=== PATIENT | male | born 1970 | race Caucasian/White ===

== ENCOUNTER 2024-08-29 10:58 | Outpatient (AMB) | payer OTHER, SELFPAY ==
--- NOTE | 2024-08-29 11:10 | A.OFFPC_ITS ---
Vital Signs 08/29/24 11:19 Height 5 ft 7 in Weight 162 lb BMI 25.4 BP 108/74 Blood Pressure Location Lt brachial Position Sitting Respiration 16 Pulse 79 Pulse Source Pulse Oximeter Temp 98.0 F Temp Source Oral Pulse Oximetry (%) 98 Oxygen Delivery Method Room Air Intake Visit Reasons: EstablishCareNP Intake Note: patient here for new patient visit. 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 Allergies No Known Allergies Allergy (Verified 08/29/24 11:33) Medication List - Last Reconciled 08/29/24 by Vineet Rapp CNP No Known Home Meds Tobacco use date assessed: 08/29/24 Dental Screening Dental Screen Date: 08/29/24 Did you have a dental visit in the last 12 months?: Yes Did you have a dental problem in the last 6 months where you did not have access to dental care?: No Was dental information given to patient?: Patient has dentist HPI HPI Comments History of Present Illness Details New patient Prior PCP: [facility], [place], [place] Last office visit/CPE: About 3 months. Last extended physical for over a year ago. He has not had blood work in a while Acute issue(s): None Not on prescription medication He generally eats and sleep well. He exercise routinely PMHx: Abdominal hernia SurgHx: Nasal surgery FHx: PGF: Alcohol abuse SocHx: Nonsmoker. Drinks 1-2 bottles of rum on weekends. No recreational drugs Last eye exam was 5 years ago Last colonoscopy was with [facility] in 2019: Normal. Will sign a release for his PCP to obtain records He is up-to-date on the shingle vaccines Last tetanus vaccine is less that 5 years ago He was vaccinated for the flu yesterday, at his workplace [facility] Medical History (Updated 08/29/24 @ 11:49 by Vineet Rapp CNP) Hernia Surgical History (Updated 08/29/24 @ 11:23 by Amanda Eastman MA) History of nasal surgery Family History (Updated 08/29/24 @ 11:29 by Amanda Eastman MA) Paternal Grandfather Alcohol abuse Paternal Grandmother No problems noted. 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 1. Little interest or pleasure in doing things: not at all 2. Feeling down, depressed, or hopeless: not at all 3. Trouble falling or staying asleep, or sleeping too much: not at all 4. Feeling tired or having little energy: not at all 5. Poor appetite or overeating: not at all 6. Feeling bad about yourself - or that you are a failure or have let yourself or your family down: not at all 7. Trouble concentrating on things, such as reading the newspaper or watching television: not at all 8. Moving or speaking so slowly that other people could have noticed. Or the opposite - being so fidgety or restless that you have been moving around a lot more than usual: not at all 9. Thoughts that you would be better off or of hurting yourself in some way: not at all Total score: 0 Depression Screening Interpretation: Negative Depression Screening Done: Yes 37231 - PHQ-9 Billing: Yes Source: Developed by Drs. Uvaldo Mccauley, Adriana Jauregui, Yusef Rodrigez and colleagues, with an educational demetrice from [employer]. Thrive Questionnaire Date Thrive assessed: 08/29/24 I am a: Patient What is your living situation today?: I have a steady place to live Within the past 12 months, did the food you bought not last and you didn't have the money to get more?: Never true Within the past 12 months, did you worry whether your food would run out before you got money to buy more?: Never true Do you have trouble paying for medicines?: No Do you have trouble getting transportation to medical appointments?: No Do you have trouble paying your heating and electricity bill?: No Do you have trouble taking care of your child, family member or friend?: No Do you have trouble with day-to-day activities such as bathing, preparing meals, shopping, managing finances, etc.?: No Are you currently unemployed and looking for a job?: No Are you interested in more education?: No Please select the resources that you would like help with: None Currently or been in a relationship where the following occur: No concerns reported THRIVE Score: 0 AUDIT C Alcohol Use Questionnaire (AUDIT-C) 1. How often do you have a drink containing alcohol?: 2-3 times a week 2. How many drinks containing alcohol do you have on a typical day when you are drinking?: 1 or 2 3. How often do you have six or more drinks on one occasion?: Never Total Score: 3 FABY-7 AMB Questionnaire FABY-7 Date FABY - 7 assessed: 08/29/24 Feeling nervous, anxious, or on edge: 0 = Not at all Not being able to stop or control worryin = Not at all Worrying too much about different things: 0 = Not at all Trouble relaxin = Not at all Being so restless that it is hard to sit still: 0 = Not at all Becoming easily annoyed or irritable: 0 = Not at all Feeling afraid as if something awful might happen: 0 = Not at all Total FABY-7 score (0-4 normal; 5-9 mild; 10-14 moderate; 15-21 severe): 0 Source: Developed by Drs. Uvaldo Mccauley, Adriana Jauregui, Yusef Rodrigez and colleagues, with an educational demetrice from [employer]. FABY-7 Assessment Billing FABY-7 Assessment Tool: FABY-7 Assessment 58213 Review of Systems Const Details: Denies chills, Denies fatigue, Denies fever(s), Denies headache(s) and Denies weakness HEENT Denies change in vision, Denies dizziness, Denies headache(s), Denies hearing loss, Denies nasal congestion, Denies sinus pain, Denies sinus pressure and Denies sore throat Card Denies chest pain, Denies lightheadedness, Denies dyspnea and Denies other (palpitations) Resp Denies cough, Denies dyspnea and Denies wheezing GI Denies abdominal pain, Denies melena, Denies hematochezia, Denies change in bowel habits, Denies dyspepsia and Denies nausea Denies hematuria and Denies dysuria Musc Denies abnormal gait, Denies myalgias, Denies arthralgias, Denies numbness and Denies tingling Skin/Breast Denies rash, Denies unusual bruising and Denies wounds Neuro Denies abnormal gait, Denies dizziness, Denies headache(s), Denies memory loss, Denies numbness, Denies Sensory deficit (Neuro), Denies tingling and Denies weakness Psych Denies anxiety, Denies depression and Denies memory loss Endo Denies cold intolerance, Denies fatigue, Denies heat intolerance, Denies polydipsia and Denies polyuria Lawrence/Lymph Denies easy bleeding and Denies easy bruising Aller/Immun Denies wheezing Physical exam (Primary Care) Vital Signs: Last Vital Signs Temp 98.0 F 08/29/24 11:19 Pulse 79 08/29/24 11:19 Resp 16 08/29/24 11:19 BP 108/74 08/29/24 11:19 Pulse Ox 98 08/29/24 11:19 Oxygen Delivery Method Room Air 08/29/24 11:19 BMI result Body Mass Index 25.4 Tobacco/Smoking Status: Tobacco use Status Tobacco use date assessed 08/29/24 08/29/24 11:16 Patient Tobacco Use Status Never used Tobacco 08/29/24 11:16 e-Cigarette/Vaping Use Never Used 08/29/24 11:16 PHQ-9: PHQ-9 Score PHQ-9: Total score 0 08/29/24 11:29 Depression Screening Interpretation: Negative Thrive Assessment: Date of Thrive Assessment Date Thrive assessed 08/29/24 08/29/24 11:29 Currently or been in a relationship where the following occur: No concerns reported Const Other: General: no acute distress, well developed, alert and awake Nutritional Appearance: well nourished Orientation/consciousness: patient oriented x3 HENMT Head: Yes normocephalic and Yes atraumatic Ears: hearing grossly normal bilaterally and TM's normal bilaterally General nose exam: Normal external nose present and Normal nares present Mouth: Normal oral and palatal mucosa present and moist mucous membranes Teeth and gingiva: dentition normal Throat: Yes oropharynx normal Eyes Pupils: Equal, round and reactive pupils present and Pupil accommodation reflex normal EOM: EOMs intact bilaterally Neck Neck: Yes normal visual inspection, Yes no lymphadenopathy and Yes trachea midline Thyroid: Thyroid normal Carotids: no bruits Lymphatic: no lymphadenopathy noted Chest Chest palpation & inspection: normal inspection of the chest Resp Effort & Inspection: normal respiratory effort Auscultation: clear to auscultation bilaterally Cardio Rate: regular rate Rhythm: regular rhythm Heart sounds: S1 normal heart sound present, S2 normal heart sound present, no gallops, no murmurs and no rubs Bruits: no abdominal aortic bruits and no carotid bruits GI Palpation (GI): No Abdominal aortic bruit present, Soft to palpation, nontender, No hepatosplenomegaly present and No Rebound tenderness present Auscultation: normal bowel sounds General: Yes no CVA tenderness Back/Spine/Pelvis Back: no CVA tenderness Cervical Spine: cervical ROM normal and No Cervical spine tenderness Thoracic/Lumbar Spine: thoraco-lumbar ROM normal, No pain with thoraco-lumbar ROM, No thoracic spinal tenderness and No lumbar spinal tenderness Skin General: warm and dry. Normal skin color. Normal skin turgor Lesions: no lesions Rashes: no rashes Trauma: no lacerations or abrasions Wounds: no wounds Nails: normal Neuro General: patient oriented x3, gait normal and CN's II-XI intact bilaterally Cranial nerves: Yes Equal, round and reactive pupils present Cognition (Neuro): normal cognition Gait exam (Neuro): Normal gait present Motor exam (neuro): 5/5 motor strength present throughout Sensory Exam: No Sensory deficit (Neuro) Deep tendon reflexes (DTR's): Right patellar reflex intensity grade: 2+ and Left patellar reflex intensity grade: 2+ Extrem General: Yes normal to inspection, No edema and No calf tenderness Psych Appearance: grossly normal Affect: normal affect Attitude: cooperative Thought process: Normal thought process present Coding Level of Care Code New Pt Prev Care 40-64y(01363) Diagnoses Normal physical examination, routine Z00.00 Eye exam, routine Z01.00 Laboratory tests ordered as part of a complete physical exam (CPE) Z00. Additional Codes FABY-7 Assessment Billing - FABY-7 Assessment Tool: FABY-7 Assessment 35845 ([id number]) Assessment & Plan Assessment & Plan (1) Normal physical examination, routine: Code(s): Z00.00 - Encounter for general adult medical examination without abnormal findings Category: Medical Plan: No significant physical restrictions or limitations noted Healthy diet and routine exercise encouraged Advised to get lab work done in follow-up for telehealth visit in 2-3 weeks for labs review Return with symptoms or concerns Verbalized understanding and agreed with the treatment plan (2) Eye exam, routine: Code(s): Z01.00 - Encounter for examination of eyes and vision without abnormal findings Category: Medical Plan: Last eye exam was 5 years ago Referral made for routine eye exam (3) Laboratory tests ordered as part of a complete physical exam (CPE): Code(s): Z00.00 - Encounter for general adult medical examination without abnormal findings Category: Medical Plan: Fasting labs ordered as part of a complete physical exam. Advised to fast for at least 10 hours before getting labs drawn. May drink water Verbalized understanding and agreed with treatment plan. Orders: Orders Complete Blood Count Auto Diff Today Z00.00 - Encounter for general adult medical examination without abnormal findings Comprehensive [place]. Panel Fast Today Z00.00 - Encounter for general adult medical examination without abnormal findings PSA, Ultra Sensitive Today Z00.00 - Encounter for general adult medical examination without abnormal findings Microalbumin, Random (w Creat) Today Z00.00 - Encounter for general adult medical examination without abnormal findings TSH reflex Free T4 Today Z00.00 - Encounter for general adult medical examination without abnormal findings UA CC w/rflx Micro + Cult Today Z00.00 - Encounter for general adult medical examination without abnormal findings Lipid Panel Today Z00.00 - Encounter for general adult medical examination without abnormal findings Referrals Ophthalmology Referral Z01.00 - Encounter for examination of eyes and vision without abnormal findings
[2024-08-29 11:19] VITALS: BP 108/74; PULSE 79; RESP 16; TEMP 36.7; O2SAT 98; BMI 25.4
== END 2024-08-29 11:52 | disposition home or self-care (01) ==
PROVIDERS: PCP Nurse Practitioner Family; Visit Provider Nurse Practitioner Family
DX: Z00.00 Encounter for general adult medical examination without abnormal findings (principal)

== ENCOUNTER → 2024-08-29 10:58 | Outpatient (BNVA) | payer OTHER, SELFPAY | PROVIDERS: PCP Nurse Practitioner Family; Visit Provider Nurse Practitioner Family | DX: Z00.00 Encounter for general adult medical examination without abnormal findings (principal) | CPT/HCPCS: 96127 ==

== ENCOUNTER 2024-09-12 13:05 | Outpatient (REF) | payer OTHER, SELFPAY ==
[2024-09-12 14:07] LABS: MANUAL DIFF FLAG NO
[2024-09-12 14:11] LABS: Basophils Absolute Auto 0.1 X10*3/uL (0.0-0.2); Basophils Percent Auto 1.4 % (0-2); Eosinophils Absolute Auto 0.1 X10*3/uL (0.0-0.4); Eosinophils Percent Auto 1.7 % (0-4); Hematocrit 43.4 % (42.0-52.0); Imm Gran Abs Auto 0.01 X10*3/uL (0.00-0.03); Imm Gran Pct Auto 0.2 % (0.0-0.4); Lymphocytes Absolute Auto 1.2 X10*3/uL (1.2-4.9); Lymphocytes Percent Auto 18.8 % (20-40); Mean Corpuscular HGB Conc 34.6 g/dl (31.0-36.0); Mean Corpuscular Hemoglobin 29.7 pg (27.0-33.0); Mean Corpuscular Volume 85.9 fL (80.0-98.0); Mean Platelet Volume 8.1 fL (9.4-12.4); Monocytes Absolute Auto 0.4 X10*3/uL (0.1-1.2); Monocytes Percent Auto 6.7 % (2-11); Neutrophils Absolute Auto 4.7 x10*3/uL (2.0-8.3); Neutrophils Percent Auto 71.2 % (45-73); Platelet Count 234 X10*3/uL (160-400); Red Blood Count 5.05 X10*6/uL (4.60-5.80); Red Cell Distribution Width 12.2 % (11.0-16.0); White Blood Count 6.6 X10*3/uL (4.8-10.8)
[2024-09-12 15:09] LABS: Alanine Aminotransferase 18 U/L (0-40); Albumin Level 4.2 g/dL (3.5-5.0); Alkaline Phosphatase 69 U/L (39-117); Anion Gap 12 (12-20); Aspartate Amino Transferase 22 U/L (5-37); Bilirubin Total 0.8 mg/dL (0.0-1.0); Blood Urea Nitrogen 20 mg/dL (9-16); Calcium 9.3 mg/dL (8.4-10.2); Carbon Dioxide 30 mmol/L (22-29); Chloride 102 mmol/L (96-108); Cholesterol 178 mg/dL (<200); Estimated Glomerular Filt Rate > 60; Glucose Fasting 94 mg/dL (60-99); HDL Cholesterol 67 mg/dL (>40); LDL Cholesterol Calculated 103 mg/dL (<100); Potassium 4.3 mmol/L (3.3-5.1); Sodium 140 mmol/L (135-145); Total Protein 6.9 g/dL (6.5-8.0); Triglycerides 43 mg/dL (<150)
[2024-09-12 15:54] LABS: TSH reflex Free T4 0.96 uIU/mL (0.32-4.0)
[2024-09-12 17:47] LABS: Appearance Urine Clear; Color Urine Yellow; Glucose Urine UA Negative (Negative); Leukocyte Esterase Urine Negative (Negative); Nitrite Urine Negative (Negative); PH 6.5 (5.0-9.0); Specific Gravity - Urine 1.025 (1.005-1.025); UMIC TRIGGER UACC YES; Urine Blood Trace (Negative); Urine Ketones Negative (Negative); Urine Protein Negative (Neg-Trace)
[2024-09-12 17:52] LABS: Bacteria Urine None Seen (None Seen); Hyaline Casts Urine 0-2 /LPF (0-2); Squamous Epithelial Cell Urine 0-2 /HPF (0-2); WBC Urine 0-5 /HPF (0-5)
[2024-09-12 18:02] LABS: Creatinine Urine 136.19 mg/dL; Microalbumin Urine < 5.0 mg/L
== END 2024-09-12 13:06 | disposition home or self-care (01) ==
LOC: HO.WFDLDS 13:05
PROVIDERS: Visit Provider Nurse Practitioner Family
DX: Z00.00 Encounter for general adult medical examination without abnormal findings (principal); Z12.5 Encounter for screening for malignant neoplasm of prostate
CPT/HCPCS: 36415; 80053; 80061; 81001; 82570; 84153; 84443; 85025

== ENCOUNTER 2024-10-30 12:45 | Outpatient (AMB) | payer OTHER, SELFPAY ==
--- NOTE | 2024-10-30 12:46 | A.OFFPC_ITS ---
Vital Signs 10/30/24 12:50 Height 5 ft 7 in Weight 163 lb BMI 25.5 BP 110/60 Blood Pressure Location Rt brachial Position Sitting Respiration 12 Pulse 75 Pulse Source Pulse Oximeter Temp 97.6 F Temp Source Oral Pulse Oximetry (%) 99 Oxygen Delivery Method Room Air Intake Visit Reasons: Tourette syndrome (TS Intake Note: TS Allergies No Known Allergies Allergy (Verified 10/30/24 12:58) Medication List - Last Reconciled 10/30/24 by Vineet Rapp CNP sildenafil (Viagra) 25 mg PO DAILY PRN Tobacco use date assessed: 08/29/24 Dental Screening Dental Screen Date: 08/29/24 HPI HPI Comments History of Present Illness Details The patient is a 53-year-old male presenting with concerns regarding Tourette Syndrome and decreased libido. The patient reports a long-standing damien gnosis of Tourette Syndrome, characterized primarily by facial tics such as eye movements, which have decreased in severity over time. Originally more pronounced during his youth, these symptoms were managed with medication, specifically Haloperidol. Over the years, the condition has become mild and infrequent, occurring without clear triggers, and the patient is currently not on medication. No significant deterioration has been noted, and the patient expresses no immediate concern over neurological evaluation at this time. The patient also reports experiencing a decreased libido. He notes a decline in sexual interest and inquires whether it could be related to aging. He confirms recent testing has shown normal testosterone levels, suggesting no evident endocrine basis for this reduction. The patient attributes potential factors to fatigue due to workload or other lifestyle influences but denies any significant contributory health concerns. There is no report of recent interventions or notable stressors exacerbating his symptoms. Health Maintenance - Recent comprehensive laboratory evalua tions displayed within normal limits including CBC, kidney function, electrolyte levels, liver function tests, cholesterol levels, PSA screening, thyroid function tests, and urinalysis. - Advised to maintain engagement in heal th-promoting behaviors concerning sexual health and communication within relationships. [facility] Medical History (Updated 10/30/24 @ 13:13 by Vineet Rapp CNP) Hernia Surgical History (Updated 08/29/24 @ 11:23 by Amanda Eastman MA) History of nasal surgery Family History (Updated 08/29/24 @ 11:29 by Amanda Eastman MA) Paternal Grandfather Alcohol abuse Paternal Grandmother No problems noted. 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 Current occupational exposures/hazards: No Cognitive needs: No Hearing needs: No Vision needs: No Questionnaire Thrive Questionnaire Date Thrive assessed: 10/29/24 I am a: Patient What is your living situation today?: I have a steady place to live Within the past 12 months, did the food you bought not last and you didn't have the money to get more?: Never true Within the past 12 months, did you worry whether your food would run out before you got money to buy more?: Never true Do you have trouble paying for medicines?: No Do you have trouble getting transportation to medical appointments?: No Do you have trouble paying your heating and electricity bill?: No Do you have trouble taking care of your child, family member or friend?: No Do you have trouble with day-to-day activities such as bathing, preparing meals, shopping, managing finances, etc.?: No Are you currently unemployed and looking for a job?: No Are you interested in more education?: No Please select the resources that you would like help with: None Currently or been in a relationship where the following occur: No concerns reported THRIVE Score: 0 AUDIT C Alcohol Use Questionnaire (AUDIT-C) 1. How often do you have a drink containing alcohol?: 2-4 times a month Total Score: 2 FABY-7 AMB Questionnaire FABY-7 Date FABY - 7 assessed: 08/29/24 Feeling nervous, anxious, or on edge: 0 = Not at all Not being able to stop or control worryin = Not at all Worrying too much about different things: 0 = Not at all Trouble relaxin = Not at all Being so restless that it is hard to sit still: 0 = Not at all Becoming easily annoyed or irritable: 0 = Not at all Feeling afraid as if something awful might happen: 0 = Not at all Total FABY-7 score (0-4 normal; 5-9 mild; 10-14 moderate; 15-21 severe): 0 Source: Developed by Drs. Uvaldo Mccauley, Adriana Jauregui, Yusef Rodrigez and colleagues, with an educational demetrice from [employer]. Review of Systems Const Details: Const Denies chills, Denies fatigue, Denies fever(s), Denies headache(s) and Denies weakness ENT Denies dizziness and Denies headache(s) Card Denies chest pain, Denies lightheadedness, Denies dyspnea and Denies other (Palpitations) Resp Denies cough, Denies dyspnea, Denies wheezing and Denies other ( shortness of breath) GI Denies abdominal pain, Denies melena, Denies hematochezia, Denies change in bowel habits, Denies dyspepsia and Denies nausea Denies hematuria and Denies dysuria Musc Denies abnormal gait, Denies myalgias, Denies arthralgias, Denies numbness and D enies tingling Skin/Breast Denies rash, Denies unusual bruising and Denies wounds Neuro Reports infrequent facial tics (eye twitches), Denies abnormal gait, Denies dizziness, Denies headache(s), Denies memory loss, Denies numbness, Denies Sensory deficit (Neuro), Denies tingling and Denies weakness Psych Denies anxiety, Denies depression, Denies memory loss Endo Denies cold intolerance, Denies fatigue, Denies heat intolerance, Denies polydipsia and Denies polyuria Aller/Immun Denies wheezing Physical exam (Primary Care) Vital Signs: Last Vital Signs Temp 97.6 F 10/30/24 12:50 Pulse 75 10/30/24 12:50 Resp 12 10/30/24 12:50 BP 110/60 10/30/24 12:50 Pulse Ox 99 10/30/24 12:50 Oxygen Delivery Method Room Air 10/30/24 12:50 BMI result Body Mass Index 25.5 Tobacco/Smoking Status: Tobacco use Status Tobacco use date assessed 08/29/24 10/30/24 12:54 Patient Tobacco Use Status Never used Tobacco 10/30/24 12:54 e-Cigarette/Vaping Use Never Used 10/30/24 12:54 Thrive Assessment: Date of Thrive Assessment Date Thrive assessed 10/29/24 10/30/24 12:54 Currently or been in a relationship where the following occur: No concerns reported Const Other: General: no acute distress and well developed Nutritional Appearance: well nourished Orientation/consciousness: patient oriented x3 HENMT Head: Yes normocephalic and Yes atraumatic Eyes General: appearance normal, both eyes and all related structures Pupils: Equal, round and reactive pupils present EOM: EOMs intact bilaterally Resp Effort & Inspection: normal respiratory effort Auscultation: clear to auscultation bilaterally Cardio Rate: regular rate Rhythm: regular rhythm Heart sounds: S1 normal heart sound present, S2 normal heart sound present, no gallops, no murmurs and no rubs GI Palpation (GI): No Abdominal aortic bruit present, Soft to palpation, nontender, No hepatosplenomegaly present and No Rebound tenderness present Auscultation: normal bowel sounds General: Yes no CVA tenderness Back/Spine/Pelvis Back: no CVA tenderness Cervical Spine: cervical ROM normal and No Cervical spine tenderness Thoracic/Lumbar Spine: thoraco-lumbar ROM normal, No pain with thoraco-lumbar ROM, No thoracic spinal tenderness and No lumbar spinal tenderness Extrem General: Yes normal to inspection, No edema and No calf tenderness Skin General: warm and dry. Normal skin color. Normal skin turgor Neuro General: patient oriented x3, gait normal and no focal neuro deficit Cranial nerves: Yes Equal, round and reactive pupils present Cognition (Neuro): normal cognition Gait exam (Neuro): Normal gait present Sensory Exam: No Sensory deficit (Neuro) Psych Appearance: grossly normal Affect: normal affect Attitude: cooperative Thought process: Normal thought process present Coding Level of Care Code Est Pt Level 3 (26499) Diagnoses Tourette syndrome F95.2 Decreased libido R68.82 Assessment & Plan Assessment & Plan (1) Tourette syndrome: Code(s): F95.2 - Tourette's disorder Category: Medical Plan: Currently mild with a history of management using Haloperidol. No further neurology referral needed at this time unless symptoms exacerbate. (2) Decreased libido: Code(s): R68.82 - Decreased libido Category: Medical Plan: Discuss lifestyle modifications and exploring variability in personal interactions to enhance engagement. Plan During the visit, I discussed with the patient the current mild presentation of his Tourette Syndrome and noted that further neurological evaluation is optional unless symptomatic changes occur. Regarding his decreased libido, we discussed potential lifestyle and relational changes that might enhance sexual activity and satisfaction. I emphasized normal findings on his testosterone testing and encouraged further communication with a partner to explore new dimensions in their sexual relationship. I advised scheduling a follow-up physical examination next August or earlier if any concerns arise. I provided supportive activities counselor, reiterating that lifestyle adjustments might improve his condition. Patient Instructions: - Engage in varied relationship activities to address decreased libido. - No current need for neurology referral unless significant changes in facial tics occur. - Schedule next physical examination on or after August 29, 2025. - Maintain current healthy lifestyle behaviors and communication within relationships. - Seek medical advice sooner if symptoms of concern develop. Patient was informed and verbally consented to the use of an ambient scribe for clinic note documentation during this visit.
[2024-10-30 12:50] VITALS: BP 110/60; PULSE 75; RESP 12; TEMP 36.4; O2SAT 99; BMI 25.5
== END 2024-10-30 13:09 | disposition home or self-care (01) ==
LOC: HO.HMCFM 12:45
PROVIDERS: PCP Nurse Practitioner Family; Visit Provider Nurse Practitioner Family
DX: F95.2 Tourette's disorder (principal); R68.82 Decreased libido

== ENCOUNTER → 2024-10-30 12:45 | Outpatient (BNVA) | payer OTHER, SELFPAY | PROVIDERS: PCP Nurse Practitioner Family; Visit Provider Nurse Practitioner Family ==

== ENCOUNTER 2024-11-04 14:52 | Outpatient (AMB) | payer OTHER, SELFPAY ==
--- NOTE | 2024-11-04 15:03 | AM.OFFWIN_ITS ---
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
[2024-11-04 15:07] VITALS: BP 119/72; PULSE 76; RESP 16; TEMP 36.3; O2SAT 98; BMI 25.9
--- NOTE | 2024-11-04 15:13 | A.OFFVIS_ITS ---
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 The symptoms began acutely upon waking this morning, following a weekend where the patient experienced a mild sore throat which resolved by yesterday. He also reported a runny nose over the weekend, attributing it to a cold. This morning, however, he noticed his eyes appeared half-closed, and his facial area felt slightly swollen, alongside a persistent headache focused centrally on his forehead. Additionally, he described intermittent body aches but denies having any persistent fever or chills. There is a slight cough but no current sore throat. The patient has not taken any medications today but reported using [id number] medications such as Airborne last night and NyQuil before going to bed to alleviate symptoms. The patient mentioned possible exposure to illness via his spouse, who was feeling unwell a few days ago with fatigue and a sore throat, but has since improved. There is no significant pressure in the ears, and swallowing does not cause substantial pain. There was no prior history of sinus infections mentioned in this visit. [facility] Medical History (Updated 11/04/24 @ 15:28 by Vineet Rapp CNP) Hernia Surgical History (Updated 08/29/24 @ 11:23 by Amanda Eastman MA) History of nasal surgery Family History (Updated 08/29/24 @ 11:29 by Amanda Eastman MA) Paternal Grandfather Alcohol abuse Paternal Grandmother No problems noted. 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 Current occupational exposures/hazards: No Cognitive needs: No Hearing needs: No Vision needs: No Review of Systems Const Details: Const Denies chills, Denies fatigue, Denies fever(s), Reports headache(s) and Denies weakness ENT Reports as per HPI Card Denies chest pain, Denies lightheadedness, Denies dyspnea and Denies other (Palpitations) Resp Denies cough, Denies dyspnea, Denies wheezing and Denies other ( shortness of breath) GI Denies abdominal pain, Denies melena, Denies hematochezia, Denies change in bowel habits, Denies dyspepsia and Denies nausea Denies hematuria and Denies dysuria Musc Denies abnormal gait, Denies myalgias, Denies arthralgias, Denies numbness and Denies tingling Skin/Breast Denies rash, Denies unusual bruising and Denies wounds Neuro Denies abnormal gait, Denies dizziness, Denies headache(s), Denies memory loss, Denies numbness, Denies Sensory deficit (Neuro), Denies tingling and Denies weakness Psych Denies anxiety, Denies depression, Denies memory loss Endo Denies cold intolerance, Denies fatigue, Denies heat intolerance, Denies polydipsia and Denies polyuria Aller/Immun Denies wheezing Physical Exam Vital Signs: Last Vital Signs Temp 97.3 F 11/04/24 15:07 Pulse 76 11/04/24 15:07 Resp 16 11/04/24 15:07 BP 119/72 11/04/24 15:07 Pulse Ox 98 11/04/24 15:07 Oxygen Delivery Method Simple Mask 11/04/24 15:07 BMI result Body Mass Index 25.9 Const Other: General: no acute distress and well developed Nutritional Appearance: well nourished Orientation/consciousness: patient oriented x3 HENMT Head is normocephalic Bilateral ear canal and TM are normal Nasal turbinates and oropharynx are pink and moist Sinuses are nontender with palpation No auricular or cervical lymphadenopathy Eyes General: appearance normal, both eyes and all related structures Pupils: Equal, round and reactive pupils present EOM: EOMs intact bilaterally Resp Effort & Inspection: normal respiratory effort Auscultation: clear to auscultation bilaterally Cardio Rate: regular rate Rhythm: regular rhythm Heart sounds: S1 normal heart sound present, S2 normal heart sound present, no gallops, no murmurs and no rubs GI Palpation (GI): No Abdominal aortic bruit present, Soft to palpation, nontender, No hepatosplenomegaly present and No Rebound tenderness present Auscultation: normal bowel sounds General: Yes no CVA tenderness Back/Spine/Pelvis Back: no CVA tenderness Cervical Spine: cervical ROM normal and No Cervical spine tenderness Thoracic/Lumbar Spine: thoraco-lumbar ROM normal, No pain with thoraco-lumbar ROM, No thoracic spinal tenderness and No lumbar spinal tenderness Extrem General: Yes normal to inspection, No edema and No calf tenderness Skin General: warm and dry. Normal skin color. Normal skin turgor Neuro General: patient oriented x3, gait normal and no focal neuro deficit Cranial nerves: Yes Equal, round and reactive pupils present Cognition (Neuro): normal cognition Gait exam (Neuro): Normal gait present Sensory Exam: No Sensory deficit (Neuro) Psych Appearance: grossly normal Affect: normal affect Attitude: cooperative Thought process: Normal thought process present Assessment & Plan Assessment & Plan (1) Viral upper respiratory illness: Code(s): J06.9 - Acute upper respiratory infection, unspecified Category: Medical Plan: For Suspected Viral Upper Respiratory Infection, I recommend supportive care consisting of increased fluid intake and rest. I have advised the patient to use acetaminophen or ibuprofen to manage symptoms such as headache and general discomfort. A nasal swab has been taken to rule out COVID-19, influenza, or RSV. If symptoms worsen, the patient should contact our office. Considering the lack of physical evidence of a bacterial sinus infection, antihistamines could be beneficial if symptoms are suspected to be related to possible allergies. Patient was informed and verbally consented to the use of an ambient scribe for clinic note documentation during this visit. Plan I discussed with the patient that his symptoms are likely due to a viral upper respiratory infection, possibly complicated by allergic rhinitis given the nature of his nasal symptoms and lack of response suggestive of bacterial infection. I informed him of the plan to test for COVID-19, influenza, and RSV via a nasal swab, with results expected by tomorrow morning. If the swab results are positive for any viral infection, he will be notified immediately; otherwise, negative results can be confirmed via a call to our office in the morning. I advised the use of Tylenol or ibuprofen as needed for relief of symptoms and encouraged fluid hydration and rest. I reassured the patient that work re-engagement can occur if he feels better, pending test results. No antibiotics are currently warranted. Orders: Orders SARS-CoV2/FLU/RSV Today J06.9 - Acute upper respiratory infection, unspecified Patient Instructions: - Use Tylenol (650 mg) or Ibuprofen (800 mg) every six to eight hours as needed for pain management. - Increase fluid intake. - Rest as much as possible to aid recovery. - Contact the office if symptoms worsen. - Await notification of nasal swab results. Patient was informed and verbally consented to the use of an ambient scribe for clinic note documentation during this visit. Coding Level of Care Code Est Pt Level 3 (65764) Diagnoses Viral upper respiratory illness J06.9
[2024-11-04 15:14] VITALS: BMI 25.9
== END 2024-11-04 15:25 | disposition home or self-care (01) ==
PROVIDERS: PCP Nurse Practitioner Family; Visit Provider Nurse Practitioner Family
DX: J06.9 Acute upper respiratory infection, unspecified (principal)

== ENCOUNTER 2024-11-04 14:52 | Outpatient (REF) | payer OTHER, SELFPAY ==
[2024-11-04 18:33] LABS: Influenza A PCR NEGATIVE (Negative); Influenza B PCR NEGATIVE (Negative); Resp Syncy Virus RNA Qual PCR NEGATIVE (Negative); SARS COV2 PCR INHOUSE NEGATIVE (Negative)
== END 2024-11-04 14:53 | disposition home or self-care (01) ==
LOC: HO.LAB 14:52
PROVIDERS: PCP Nurse Practitioner Family; Visit Provider Nurse Practitioner Family
DX: J06.9 Acute upper respiratory infection, unspecified (principal)
CPT/HCPCS: 0241U

== ENCOUNTER 2025-09-04 15:05 | Outpatient (AMB) | payer OTHER, SELFPAY ==
--- NOTE | 2025-09-04 15:07 | A.OFFPC_ITS ---
Vital Signs 09/04/25 15:12 Height 5 ft 7 in Weight 160 lb 8 oz BMI 25.1 BP 104/62 Blood Pressure Location Rt brachial Position Sitting Respiration 16 Pulse 61 Pulse Source Pulse Oximeter Temp 97.5 F Temp Source Oral Pulse Oximetry (%) 96 Oxygen Delivery Method Room Air Intake Visit Reasons: CPE on/after 08/29/25 Intake Note: patien here for CPE Hand Trimmer Required: No Allergies No Known Allergies Allergy (Verified 09/04/25 15:24) Medication List - Last Reconciled 09/04/25 by Vineet Rapp CNP sildenafil (Viagra) 25 mg PO DAILY PRN Tobacco use date assessed: 09/04/25 Dental Screening Dental Screen Date: 09/04/25 Did you have a dental visit in the last 12 months?: Yes Did you have a dental problem in the last 6 months where you did not have access to dental care?: No Was dental information given to patient?: Patient has dentist HPI HPI Comments History of Present Illness Details 54-year-old male presents for an extende d physical exam. He is on sildenafil 25 mg daily as needed. Acute issue(s) - None Past Medical History - Abdominal hernia, Tourette syndrome, d ecreased libido Social History - Nonsmoker. Does not vape. Drinks 2 be ers 1-2 times weekly. Denies recreational drug use - Has been making healthy dietary choice s. Exercises routinely. Generally sleep well Health maintenance - Last eye exam was 1-2 year ago in [facility]. Encouraged to follow up for routine eye care - Last dental visit was a week ago. - Last Tdap was in 09/10/2020 - Vaccinated for shingles in 12/02/2021 - Vaccinated for the flu 2 weeks ago - Last colonoscopy was 5 years ago with [facility]: Normal; recommended f/u in 10 years. Record not currently available Specialists - None [facility] Medical History (Updated 11/04/24 @ 15:28 by Vineet Rapp CNP) Hernia Surgical History (Updated 08/29/24 @ 11:23 by Amanda Eastman MA) History of nasal surgery Family History Paternal Grandfather Alcohol abuse Paternal Grandmother No problems noted. 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 1. Little interest or pleasure in doing things: not at all 2. Feeling down, depressed, or hopeless: not at all 3. Trouble falling or staying asleep, or sleeping too much: not at all 4. Feeling tired or having little energy: not at all 5. Poor appetite or overeating: not at all 6. Feeling bad about yourself - or that you are a failure or have let yourself or your family down: not at all 7. Trouble concentrating on things, such as reading the newspaper or watching television: not at all 8. Moving or speaking so slowly that other people could have noticed. Or the opposite - being so fidgety or restless that you have been moving around a lot more than usual: not at all 9. Thoughts that you would be better off or of hurting yourself in some way: not at all Total score: 0 Depression Screening Interpretation: Negative Depression Screening Done: Yes 69750 - PHQ-9 Billing: Yes Source: Developed by Drs. Uvaldo Mccauley, Adriana Jauregui, Yusef Rodrigez and colleagues, with an educational demetrice from [employer]. Thrive Questionnaire Date Thrive assessed: 09/04/25 I am a: Patient What is your living situation today?: I have a steady place to live Within the past 12 months, did the food you bought not last and you didn't have the money to get more?: Never true Within the past 12 months, did you worry whether your food would run out before you got money to buy more?: Never true Do you have trouble paying for medicines?: No Do you have trouble getting transportation to medical appointments?: No Do you have trouble paying your heating and electricity bill?: No Do you have trouble taking care of your child, family member or friend?: No Do you have trouble with day-to-day activities such as bathing, preparing meals, shopping, managing finances, etc.?: No Are you currently unemployed and looking for a job?: No Are you interested in more education?: No Please select the resources that you would like help with: None Currently or been in a relationship where the following occur: No concerns reported THRIVE Score: 0 AUDIT C Alcohol Use Questionnaire (AUDIT-C) 1. How often do you have a drink containing alcohol?: 2-3 times a week 2. How many drinks containing alcohol do you have on a typical day when you are drinking?: 1 or 2 3. How often do you have six or more drinks on one occasion?: Never Total Score: 3 Score Reviewed/Action Taken: Yes FABY-7 AMB Questionnaire FABY-7 Date FABY - 7 assessed: 09/04/25 Feeling nervous, anxious, or on edge: 0 = Not at all Not being able to stop or control worryin = Not at all Worrying too much about different things: 0 = Not at all Trouble relaxin = Not at all Being so restless that it is hard to sit still: 0 = Not at all Becoming easily annoyed or irritable: 0 = Not at all Feeling afraid as if something awful might happen: 0 = Not at all Total FABY-7 score (0-4 normal; 5-9 mild; 10-14 moderate; 15-21 severe): 0 Source: Developed by Drs. Uvaldo Mccauley, Adriana Jauregui, Yusef Rodrigez and colleagues, with an educational demetrice from [employer]. FABY-7 Assessment Billing FABY-7 Assessment Tool: FABY-7 Assessment 60796 Review of Systems Const Details: Denies chills, Denies fatigue, Denies fever(s), Denies headache(s) and Denies weakness HEENT Denies change in vision, Denies dizziness, Denies headache(s), Denies hearing loss, Denies nasal congestion, Denies sinus pain, Denies sinus pressure and Denies sore throat Card Denies chest pain, Denies lightheadedness, Denies dyspnea and Denies other (palpitations) Resp Denies cough, Denies dyspnea and Denies wheezing GI Denies abdominal pain, Denies melena, Denies hematochezia, Denies change in bowel habits, Denies dyspepsia and Denies nausea Denies hematuria and Denies dysuria Musc Denies abnormal gait, Denies myalgias, Denies arthralgias, Denies numbness and Denies tingling Skin/Breast Denies rash, Denies unusual bruising and Denies wounds Neuro Denies abnormal gait, Denies dizziness, Denies headache(s), Denies memory loss, Denies numbness, Denies Sensory deficit (Neuro), Denies tingling and Denies weakness Psych Denies anxiety, Denies depression and Denies memory loss Endo Denies cold intolerance, Denies fatigue, Denies heat intolerance, Denies polydipsia and Denies polyuria [place]/Lymph Denies easy bleeding and Denies easy bruising Aller/Immun Denies wheezing Physical exam (Primary Care) Vital Signs: Last Vital Signs Temp 97.5 F 09/04/25 15:12 Pulse 61 09/04/25 15:12 Resp 16 09/04/25 15:12 BP 104/62 09/04/25 15:12 Pulse Ox 96 09/04/25 15:12 Oxygen Delivery Method Room Air 09/04/25 15:12 BMI result Body Mass Index 25.1 Tobacco/Smoking Status: Tobacco use Status Tobacco use date assessed 09/04/25 09/04/25 15:12 Patient Tobacco Use Status Never used Tobacco 09/04/25 15:10 e-Cigarette/Vaping Use Never Used 09/04/25 15:10 PHQ-9: PHQ-9 Score PHQ-9: Total score 0 09/04/25 15:10 Depression Screening Interpretation: Negative Thrive Assessment: Date of Thrive Assessment Date Thrive assessed 09/04/25 09/04/25 15:10 Currently or been in a relationship where the following occur: No concerns reported Const Other: General: no acute distress, well developed, alert and awake Nutritional Appearance: well nourished Orientation/consciousness: patient oriented x3 HENMT Head: Yes normocephalic and Yes atraumatic Ears: hearing grossly normal bilaterally and TM's normal bilaterally General nose exam: Normal external nose present and Normal nares present Mouth: Normal oral and palatal mucosa present and moist mucous membranes Teeth and gingiva: dentition normal Throat: Yes oropharynx normal Eyes Pupils: Equal, round and reactive pupils present and Pupil accommodation reflex normal EOM: EOMs intact bilaterally Neck Neck: Yes normal visual inspection, Yes no lymphadenopathy and Yes trachea midline Thyroid: Thyroid normal Carotids: no bruits Lymphatic: no lymphadenopathy noted Chest Chest palpation & inspection: normal inspection of the chest Resp Effort & Inspection: normal respiratory effort Auscultation: clear to auscultation bilaterally Cardio Rate: regular rate Rhythm: regular rhythm Heart sounds: S1 normal heart sound present, S2 normal heart sound present, no gallops, no murmurs and no rubs Bruits: no abdominal aortic bruits and no carotid bruits GI Palpation (GI): No Abdominal aortic bruit present, Soft to palpation, nontender, No hepatosplenomegaly present and No Rebound tenderness present Auscultation: normal bowel sounds General: Yes no CVA tenderness Back/Spine/Pelvis Back: no CVA tenderness Cervical Spine: cervical ROM normal and No Cervical spine tenderness Thoracic/Lumbar Spine: thoraco-lumbar ROM normal, No pain with thoraco-lumbar ROM, No thoracic spinal tenderness and No lumbar spinal tenderness Skin General: warm and dry. Normal skin color. Normal skin turgor Lesions: no lesions Rashes: no rashes Trauma: no lacerations or abrasions Wounds: no wounds Nails: normal Neuro General: patient oriented x3, gait normal and CN's II-XI intact bilaterally Cranial nerves: Yes Equal, round and reactive pupils present Cognition (Neuro): normal cognition Gait exam (Neuro): Normal gait present Motor exam (neuro): 5/5 motor strength present throughout Sensory Exam: No Sensory deficit (Neuro) Deep tendon reflexes (DTR's): Right patellar reflex intensity grade: 2+ and Left patellar reflex intensity grade: 2+ Extrem General: Yes normal to inspection, No edema and No calf tenderness Psych Appearance: grossly normal Affect: normal affect Attitude: cooperative Thought process: Normal thought process present Coding Level of Care Code Est Pt Prev Care 40-64y(89807) Diagnoses Normal physical examination, routine Z00.00 Laboratory tests ordered as part of a complete physical exam (CPE) Z00.00 Additional Codes FABY-7 Assessment Billing - FABY-7 Assessment Tool: FABY-7 Assessment 97483 ([id number]) PHQ-9 - 52014 - PHQ-9 Billing: Yes ([id number]) Assessment & Plan Assessment & Plan (1) Normal physical examination, routine: Code(s): Z00.00 - Encounter for general adult medical examination without abnormal findings Category: Medical Plan: No significant functional limitations noted. Healthy diet and routine exercise encouraged. Perform lab work as planned and follow-up for telehealth visit for labs review in 2-4 weeks. Return sooner with symptoms or concerns. Verbalized understanding and agreed with the plan. (2) Laboratory tests ordered as part of a complete physical exam (CPE): Code(s): Z00.00 - Encounter for general adult medical examination without abnormal findings Category: Medical Plan: Fasting labs ordered as part of a complete physical exam. Advised to fast for at least 10 hours before getting labs drawn. May drink water Verbalized understanding and agreed with treatment plan. Orders: Orders Complete Blood Count Auto Diff Today Z00.00 - Encounter for general adult medical examination without abnormal findings Lipid Panel Today Z00.00 - Encounter for general adult medical examination without abnormal findings Microalbumin, Random (w Creat) Today Z00.00 - Encounter for general adult medical examination without abnormal findings TSH reflex Free T4 Today Z00.00 - Encounter for general adult medical examination without abnormal findings UA CC w/rflx Micro + Cult Today Z00.00 - Encounter for general adult medical examination without abnormal findings Comprehensive Castella. Panel Fast Today Z00.00 - Encounter for general adult medical examination without abnormal findings Vitamin D 25-OH Total Today Z00.00 - Encounter for general adult medical examination without abnormal findings
[2025-09-04 15:12] VITALS: BP 104/62; PULSE 61; RESP 16; TEMP 36.4; O2SAT 96; BMI 25.1
== END 2025-09-04 15:37 | disposition home or self-care (01) ==
LOC: HO.HMCFM 15:06
PROVIDERS: PCP Nurse Practitioner Family; Visit Provider Nurse Practitioner Family
DX: Z00.00 Encounter for general adult medical examination without abnormal findings (principal)

== ENCOUNTER → 2025-09-04 15:05 | Outpatient (BNVA) | payer OTHER, SELFPAY | PROVIDERS: PCP Nurse Practitioner Family; Visit Provider Nurse Practitioner Family | DX: Z00.00 Encounter for general adult medical examination without abnormal findings (principal); Z13.31 Encounter for screening for depression; Z13.39 Encounter for screening examination for other mental health and behavioral disorders | CPT/HCPCS: 96127 ==

== ENCOUNTER 2025-10-29 10:54 | Outpatient (REF) | payer OTHER, SELFPAY ==
[2025-10-29 13:59] LABS: MANUAL DIFF FLAG NO
[2025-10-29 14:05] LABS: Hematocrit 45.4 % (42.0-52.0); Hemoglobin 15.1 g/dl (14.0-18.0); Imm Gran Abs Auto 0.02 X10*3/uL (0.00-0.03); Imm Gran Pct Auto 0.4 % (0.0-0.4); Lymphocytes Absolute Auto 1.1 X10*3/uL (1.2-4.9); Mean Corpuscular HGB Conc 33.3 g/dl (31.0-36.0); Mean Corpuscular Hemoglobin 28.9 pg (27.0-33.0); Mean Corpuscular Volume 86.8 fL (80.0-98.0); NRBC Abs Auto 0.000 X10*3/uL (0.0-0.012); NRBC Pct Auto 0.0 /100WBC (0.0-0.2); Platelet Count 257 X10*3/uL (160-400); Red Blood Count 5.23 X10*6/uL (4.60-5.80); White Blood Count 4.8 X10*3/uL (4.8-10.8)
[2025-10-29 14:48] LABS: Alanine Aminotransferase 25 U/L (0-40); Albumin Level 4.4 g/dL (3.5-5.0); Alkaline Phosphatase 77 U/L (39-117); Anion Gap 11 (12-20); Aspartate Amino Transferase 32 U/L (5-37); Blood Urea Nitrogen 21 mg/dL (9-16); Calcium 9.5 mg/dL (8.4-10.2); Carbon Dioxide 29 mmol/L (22-29); Chloride 104 mmol/L (96-108); Cholesterol 192 mg/dL (<200); Estimated Glomerular Filt Rate > 60; HDL Cholesterol 64 mg/dL (>40); Potassium 4.5 mmol/L (3.3-5.1); Sodium 139 mmol/L (135-145); Total Protein 7.0 g/dL (6.5-8.0); Triglycerides 44 mg/dL (<150)
== END 2025-10-29 10:55 | disposition home or self-care (01) ==
LOC: HO.WFDLDS 10:54
PROVIDERS: Visit Provider Nurse Practitioner Family
DX: Z00.00 Encounter for general adult medical examination without abnormal findings (principal); Z13.0 Encounter for screening for diseases of the blood and blood-forming organs and certain disorders involving the immune mechanism; Z13.6 Encounter for screening for cardiovascular disorders; Z13.29 Encounter for screening for other suspected endocrine disorder
CPT/HCPCS: 36415; 80053; 80061; 82306; 84443; 85025

== ENCOUNTER 2025-11-12 15:18 | Outpatient (AMB) | payer OTHER, SELFPAY ==
--- NOTE | 2025-11-12 15:27 | A.OFFPC_ITS ---
Vital Signs 11/12/25 15:29 Height 5 ft 7 in Weight 164 lb 8 oz BMI 25.8 BP 108/62 Blood Pressure Location Lt brachial Position Sitting Respiration 16 Pulse 70 Pulse Source Pulse Oximeter Temp 97.3 F Temp Source Temporal Artery Scan Pulse Oximetry (%) 97 Oxygen Delivery Method Room Air Intake Visit Reasons: leno from [facility] Intake Note: Mihir presents in the office today to establish care with a new provider. Smoking Pipe Maker Required: No Allergies No Known Allergies Allergy (Verified 11/12/25 15:29) Tobacco use date assessed: 11/12/25 Dental Screening Dental Screen Date: 11/12/25 Did you have a dental visit in the last 12 months?: Yes Did you have a dental problem in the last 6 months where you did not have access to dental care?: No Was dental information given to patient?: Patient has dentist HPI HPI Comments History of Present Illness Details 54 year old male presents as transfer fr colleague to establish care. 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 Colonosoccopy at [employer] in 2019. 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 Denies CP, SOB, leg swelling. Denies family history of heart disease. Takes viagra prn ED. Mild HLD with LDL 120. ROS: Constitutional: No unexplained weight loss, fever, chills, fatigue or night sweats.. Respiratory: No shortness of breath, cough or sputum production. Cardiovascular: No chest pain, chest pressure or chest discomfort. No palpitations or pedal edema. Neurologic: No headache, dizziness, syncope Physical exam: Constitutional: Alert, in no distress. Neck: Supple, Full range of motion. No lymphadenopathy. No palpable thyroid masses. Respiratory: Clear to auscultation. Cardiovascular: normal rate and rhythm. split S2 Extremities: Warm and well perfused. No clubbing, cyanosis or edema.. Psychiatric: Normal mood and affect [facility] Medical History (Updated 11/13/25 @ 19:35 by ACE Mo) Split S2 (second heart sound) Hyperlipidemia Hernia Surgical History (Updated 08/29/24 @ 11:23 by Amanda Eastman MA) History of nasal surgery Family History Paternal Grandfather Alcohol abuse Paternal Grandmother No problems noted. 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 Current occupational exposures/hazards: No Cognitive needs: No Hearing needs: No Vision needs: No Questionnaire Thrive Questionnaire Date Thrive assessed: 09/04/25 I am a: Patient What is your living situation today?: I have a steady place to live Within the past 12 months, did the food you bought not last and you didn't have the money to get more?: Never true Within the past 12 months, did you worry whether your food would run out before you got money to buy more?: Never true Do you have trouble paying for medicines?: No Do you have trouble getting transportation to medical appointments?: No Do you have trouble paying your heating and electricity bill?: No Do you have trouble taking care of your child, family member or friend?: No Do you have trouble with day-to-day activities such as bathing, preparing meals, shopping, managing finances, etc.?: No Are you currently unemployed and looking for a job?: No Are you interested in more education?: No Please select the resources that you would like help with: None Currently or been in a relationship where the following occur: No concerns reported THRIVE Score: 0 FABY-7 AMB Questionnaire FABY-7 Date FABY - 7 assessed: 09/04/25 Source: Developed by Drs. Uvaldo Mccauley, Adriana Jauregui, Yusef Rodrigez and colleagues, with an educational demetrice from [employer]. Physical exam (Primary Care) Vital Signs: Last Vital Signs Temp 97.3 F 11/12/25 15:29 Pulse 70 11/12/25 15:29 Resp 16 11/12/25 15:29 BP 108/62 11/12/25 15:29 Pulse Ox 97 11/12/25 15:29 Oxygen Delivery Method Room Air 11/12/25 15:29 BMI result Body Mass Index 25.8 Tobacco/Smoking Status: Tobacco use Status Tobacco use date assessed 11/12/25 11/12/25 15:32 Patient Tobacco Use Status Never used Tobacco 11/12/25 15:32 e-Cigarette/Vaping Use Never Used 11/12/25 15:32 Thrive Assessment: Date of Thrive Assessment Date Thrive assessed 09/04/25 11/12/25 15:32 Currently or been in a relationship where the following occur: No concerns repo rted Coding Level of Care Code Est Pt Level 4 (18283) Add On Problem Visit Only Diagnoses Pure hypercholesterolemia E78.00 Hyperlipidemia type: pure hypercholesterolemia Split S2 (second heart sound) R01.2 Assessment & Plan Assessment & Plan (1) Hyperlipidemia: Code(s): E78.5 - Hyperlipidemia, unspecified Category: Medical Qualifiers: Hyperlipidemia type: pure hypercholesterolemia Qualified Code(s): E78.00 - Pure hypercholesterolemia, unspecified Plan: Cholesterol goals: LDL cholesterol: Less than 100 (Limit consumption of red meat and animal fats,, fried foods and saturated fats to decrease this number. Avoid tobacco use) HDL cholesterol: More than 40 (Eat more nuts and fish (if no allergies) and exercise regularly to increase this number) Triglycerides: Less than 150 (Limit alcohol use, carbohydrates and concentrated sugars to decrease this number) Moderate intensity exercise for thirty minutes per day for at least 5 days per week is recommended. (2) Split S2 (second heart sound): Code(s): R01.2 - Other cardiac sounds Category: Medical Plan: Echo ordered. Plan Due for PSA. Ordered. Schedule CPE Fall 2025. Orders: Orders Prostate Specific Antigen 11/12/25 Z12.5 - Encounter for screening for malignant neoplasm of prostate
[2025-11-12 15:29] VITALS: BP 108/62; PULSE 70; RESP 16; TEMP 36.3; O2SAT 97; BMI 25.8
== END 2025-11-12 16:08 | disposition home or self-care (01) ==
LOC: HO.HMCFM 15:19
PROVIDERS: PCP Nurse Practitioner Family; Visit Provider Physician Assistant Medical
DX: E78.00 Pure hypercholesterolemia, unspecified (principal); R01.2 Other cardiac sounds